=== PATIENT | male | born 1945 | race Caucasian/White ===

== ENCOUNTER 2016-11-06 00:27 | Emergency (ER) | payer OTHER ==
--- NOTE | 2016-11-06 03:54 | ED ORDER SUMMARY ---
..... Patient: LATASHA CEJA OrderSheet [facility] VisitID: [id number] [place] [address] 70y, M Registration Date/Time: 11/06/2016 ORDER SHEET Weight: 114.3 kg (stated) Allergies: No Known Drug Allergy GENERAL ORDERS: EKG - ER Stat (00:38 11/06/2016 DDavis R.N. per protocol) (1:00 Rebecca) CMP Urgent (00:42 11/06/2016 DDavis R.N. per protocol) (0:42 DDavis R.N.) CBC w Diff Urgent (00:42 11/06/2016 DDavis R.N. per protocol) (0:42 DDavis R.N.) Amylase Urgent (00:42 11/06/2016 DDavis R.N. per protocol) (0:42 DDavis R.N.) Lipase Urgent (00:42 11/06/2016 DDavis R.N. per protocol) (0:42 DDavis R.N.) CT Abd/Pel w Cont (No) (N/A) Urgent (01:02 11/06/2016 Jose Barahona) (Ack 1:05 Rebeca ER Senior Attorney) (1:34 JQuivey R.N.) UA-Culture if indicated Urgent (02:07 11/06/2016 Jose Barahona) (Ack 2:08 Rebeca ER Senior Attorney) (3:08 DDavis R.N.) MEDICATION ORDERS: IV FLUIDS: IV Saline Lock (00:42 11/06/2016 DDavis R.N. per protocol) (0:42 DDavis R.N.) IV NS : initial bolus 1000 mL (1000 mL/hr), then none - for X1 (NOW) (01:02 11/06/2016 Jose Barahona) (1:07 DDavis R.N.) ORDER SHEET NOTES: [Electronically signed by Zac Urias R.N. (04:18 11/06/2016)] [Electronically signed by Mark Judd Dr. (04:58 11/08/2016)] [Electronically locked/signed by Zac Urias R.N. (04:18 11/06/2016)]
--- NOTE | 2016-11-06 03:54 | ED NURSING NOTES ---
Clinical Report - Nurses [facility] [address] [place] [address] 11/06/2016 0:29 [id number] Triage time 00:30. Acuity: LEVEL 3. Chief Complaint: ABDOMINAL PAIN, NAUSEA, VOMITING and DIARRHEA. Alert. ANA COMA SCORE: [place] Coma Scale: 15- eyes open spontaneously (4); best verbal response- oriented x 4 (5); best motor response- obeys commands (6). --00:38 Zac Urias R.N. 00:30 11/06/16. BP: 142/84. HR: 82. RR: 24. O2 saturation: 97% on room air. Temp: 97.6 F (oral). Pain level now: 12/04. --00:38 Zac Urias R.N. Weight: 114.3 kg stated. Height/Length: 70 inches Per Patient. BMI: 36.2. --00:31 Zac Urias R.N. Medications Naproxen Oral. --00:33 Zac Urias R.N. Kim-D Allergy & Congestion Oral. --00:33 Zac Urias R.N. Omeprazole Oral. --00:34 Zac Urias R.N. Allergies No Known Drug Allergy. --00:33 Zac Urias R.N. History Arrived by EMS, and unaccompanied. ( abdominal cramps, sweating). PAST MEDICAL HX: Gastroesophageal reflux disease. SOCIAL HX: Heavy tobacco smoker (cigarette)- 1 pack per day. Occasional alcohol use. History of drug use: marijuana. ("that wax stuff"). ( denies HI/SI, states that he feels safe at home). --00:38 Zac Urias R.N. PROBLEMS: Hernia. Rheumatic Fever. Shoulder Injury. Acid reflux. --00:36 Zac Urias R.N. ADDITIONAL SURGERIES: Shoulder Surgery. --00:36 Zac Urias R.N. Interventions ID band on patient. To treatment room. --00:38 Zac Urias R.N. PHYSICAL ASSESSMENT Ambulatory to room. GENERAL / NEURO / PSYCH: Alert. Oriented X 4. Appears anxious. HEENT: Mucous membranes are pink. RESPIRATORY: Respirations not labored. Breath sounds within normal limits. CVS: Capillary refill less than 2 seconds. GI / : The patient has had nausea. Abdominal distention. Abdomen nontender. Bowel sounds within normal limits. SKIN: Skin is warm and dry. --00:40 Zac Urias R.N. ( Pt paced on blasting contract man, sinus rhythm on monitor). --00:44 Zac Urias R.N. NURSING PROGRESS NOTES Pulse oximeter and NIBP monitor placed on patient. Reassurance given. Two patient identifiers checked. Call light placed in reach. Side rails up x 1. Bed placed in lowest position. Brakes of bed on. Patient ready for evaluation- chart flagged. Patient waiting for evaluation. --00:40 Zac Urias R.N. 00:40 11/06/2016 Site #1 started via IV in the left antecubital space with an 20g angiocath, with aseptic technique and good blood return; one attempt. Blood drawn: rainbow set. Labeled in the presence of the patient and sent to the lab. Saline lock flushed with 10 mL saline (Started by SAVITA Oneill). --00:40 Zac Urias R.N. 01:07 11/06/2016 Started bag #1 1000 mL IV Fluids IV NS (Saline); at 1000 mL/hr over 1 hour(s) via site #1. Allergies verified and confirmed 5 rights. IV patency established. IV site checked: no pain, redness, or swelling. IV flushed thoroughly pre- and post-medication administration. Completed per protocol. --01:07 Zac Urias R.N. 01:26. Patient transported to CT by stretcher with tech. --01:34 Basil Parada R.N. Patient returned from CT by stretcher with tech. (01:34). --01:34 Basil Parada R.N. EKG time: (0100). EKG was ordered, performed by a tech and shown to the ED physician. --01:45 Simran Mosley ( Patient given urine cup and urinal at bedside with instructions for urine sample collection, patient states that he he will provide a urine sample.). --02:28 Zac Urias R.N. 02:10 11/06/2016 IV Saline Lock Drip IV Discontinued: discontinued upon discharge. Total amount infused: 1000 mL. IV patency established. IV site checked: no pain, redness, or swelling. IV flushed thoroughly. --04:16 Zac Urias R.N. 02:10 11/06/2016 IV Fluids IV NS Discontinued: discontinued. Total amount infused: 1000 mL. IV patency established. IV site checked: no pain, redness, or swelling. IV flushed thoroughly. --04:17 Zac Urias R.N. 04:12 11/06/2016 Site #1 removed upon discharge. Manual pressure and bandage applied. --04:17 Zac Urias R.N. DISPOSITION / DISCHARGE Departure time: 04:12. Condition at departure: stable. No learning barriers present. Discharge instructions provided and reviewed with the patient and spouse. Reviewed medication(s) side effects, precautions, dosing and course information. Prescription(s) given to the patient. Treatments reviewed. Reviewed referrals for followup. Patient and spouse verbalized understanding. Written instructions provided in Azeri. The patient was discharged home and accompanied by spouse. He left the Emergency Department ambulatory and via private vehicle. Spouse driving. --04:14 Zac Urias R.N. 04:12 11/06/16. BP: 125/71 taken on the right arm, while sitting. HR: 70 (regular and normal rate). RR: 24 (regular and unlabored). O2 saturation: 96% on room air. Pain level now: 0/10. Additional comments: NSR. --04:14 Zac Urias R.N. <<STRICKEN ENTRY-- Reviewed warnings. --04:15 Zac Urias R.N. --END STRIKE>> Correction --04:15 Zac Urias R.N. 04:12:. Reviewed warnings. --04:15 Zac Urias R.N. Locked/Released at 11/06/2016 4:18 by Zac Urias R.N.
--- NOTE | 2016-11-06 03:54 | ED ORDER SUMMARY ---
..... Patient: LATASHA CEJA OrderSheet [facility] VisitID: [id number] [place] [address] 70y, M Registration Date/Time: 11/06/2016 ORDER SHEET Weight: 114.3 kg (stated) Allergies: No Known Drug Allergy GENERAL ORDERS: EKG - ER Stat (00:38 11/06/2016 DDavis R.N. per protocol) (1:00 Rebecca) CMP Urgent (00:42 11/06/2016 DDavis R.N. per protocol) (0:42 DDavis R.N.) CBC w Diff Urgent (00:42 11/06/2016 DDavis R.N. per protocol) (0:42 DDavis R.N.) Amylase Urgent (00:42 11/06/2016 DDavis R.N. per protocol) (0:42 DDavis R.N.) Lipase Urgent (00:42 11/06/2016 DDavis R.N. per protocol) (0:42 DDavis R.N.) CT Abd/Pel w Cont (No) (N/A) Urgent (01:02 11/06/2016 Jose Barahona) (Ack 1:05 Rebeca ER Audio Video Technician) (1:34 JQuivey R.N.) UA-Culture if indicated Urgent (02:07 11/06/2016 Jose Barahona) (Ack 2:08 Rebeca ER Audio Video Technician) (3:08 DDavis R.N.) MEDICATION ORDERS: IV FLUIDS: IV Saline Lock (00:42 11/06/2016 DDavis R.N. per protocol) (0:42 DDavis R.N.) IV NS : initial bolus 1000 mL (1000 mL/hr), then none - for X1 (NOW) (01:02 11/06/2016 Jose Barahona) (1:07 DDavis R.N.) ORDER SHEET NOTES: [Electronically signed by Zac Urias R.N. (04:18 11/06/2016)] [Electronically signed by Mark Judd Dr. (04:58 11/08/2016)] [Electronically locked/signed by Zca Urias R.N. (04:18 11/06/2016)]
--- NOTE | 2016-11-06 03:54 | ED CLINICAL REPORT ---
Clinical Report - Physicians/Mid Levels [facility] [address] [place] [address] 11/06/2016 0:29 Patient: LATASHA CEJA Time Seen: 0042; initial patient contact. Arrived- By ambulance. Historian- patient. HISTORY OF PRESENT ILLNESS Chief Complaint: ABDOMINAL PAIN. This started today and is still present (unchanged). It was abrupt in onset and has been constant but is not gone now. At its maximum, severity described as moderate. When seen in the E.D., severity described as moderate. Modifying factors. Not worsened by anything. Not relieved by anything. No radiation. It is described as located in the epigastric area. The patient has had nausea, vomiting and diarrhea. No loss of appetite. No additional abdominal pain. (no new/unusual foods, recent travel, sick contacts, or recent abx.). No recent travel. Similar symptoms previously: None. Recent medical care: Not recently seen/assessed. REVIEW OF SYSTEMS No fever, chest pain or difficulty breathing. All systems otherwise negative, except as recorded above. PAST HISTORY See nurses notes. Medications: Omeprazole Oral. Kim-D Allergy & Congestion Oral. Naproxen Oral. Allergies: No Known Drug Allergy. SOCIAL HISTORY Smoker- current status unknown. History of occasional drug use: marijuana. No alcohol use. No recent travel. Is a local resident. ADDITIONAL NOTES The nursing notes have been reviewed. PHYSICAL EXAM Vital Signs: 11/06/2016 00:30 BP: 142/84. HR: 82. RR: 24. O2 saturation: 97%. Temp: 97.6 F. Pain level now: 6/10. Oxygen saturation normal. Appearance: Alert. Oriented X3. No acute distress. (non-toxic). Eyes: Pupils equal, round and reactive to light. Eyes normal inspection. No scleral icterus. Neck: Normal inspection. Neck supple. CVS: Normal heart rate and rhythm. Heart sounds normal. Pulses normal. Respiratory: No respiratory distress. Breath sounds normal. Chest nontender. Abdomen: Soft. Mild tenderness in the epigastric area. No guarding, rebound tenderness or Padgett's, obturator or psoas sign present. Bowel sounds normal. No organomegaly. No mass. Femoral pulses equal. Skin: Skin warm and dry. Normal skin color. No rash. Normal skin turgor. Extremities: Extremities exhibit normal ROM. No lower extremity edema. Neuro: Oriented X 3. No motor deficit. No sensory deficit. LABS, X-RAYS, AND EKG EKG: No acute ischemia. Normal sinus rhythm. Rate: 84. Normal P waves. Normal BERNA. RBBB (146). Normal ST and T waves, QT and QTc. Abdominal CT: PROCEDURE: CT ABD/PELVIS WITH CONTRAST CLINICAL INDICATION: Upper abdominal pain. History of hiatal and inguinal hernia repair. TECHNIQUE: 135 ml of Isovue 300 were injected intravenously and axial images were obtained of the entire abdomen and pelvis with sagittal and coronal reformations. COMPARISON: None. FINDINGS: ABDOMEN: Lung bases are clear. Heart size is normal. Moderate hiatal hernia with marked gaseous gastric distention of the stomach. Contracted gallbladder. Punctate pancreatic calcification suggestive of chronic pancreatitis. Liver, spleen and adrenal glands are normal. Bilateral renal cysts. Mild atherosclerosis of the aorta. Stool throughout the large bowel. PELVIS: Normal appendix. Mild sigmoid diverticulosis. Enlarged prostate (5 cm). Normal bladder. No pelvic mass, inflammatory changes or free fluid. No suspicious osseous lesions. IMPRESSION: 1. Gaseous distention of the stomach, nonspecific. Consider gastric outlet obstruction 2. Moderate hiatal hernia. 3. Obstipation 4. Mild sigmoid diverticulosis. Study type: abdomen and pelvis. The study was independently viewed by me and interpreted by the radiologist. The study was discussed with the radiologist (via phone and pacs). Laboratory Tests: UA-Culture if indicated: (RANI: 11/06/2016 02:35) ( MsgRcvd 11/06/2016 02:48) Final results Test Result Flag Units (Reference) URINE COLOR YELLOW URINE APPEARANCE CLEAR URINE GLUCOSE TRACE (NEGATIVE) URINE BILIRUBIN NEGATIVE (NEGATIVE) URINE KETONE 1+ (NEGATIVE) URINE SPECIFIC GRAVITY 1.015 (1.010-1.030) URINE PH 6.0 (5.0-8.0) URINE PROTEIN TRACE (NEGATIVE) URINE UROBILINOGEN 0.2 EU/dL (0.2-1.0) URINE NITRITE NEGATIVE (NEGATIVE) URINE BLOOD NEGATIVE (NEGATIVE) URINE LEUK ESTERASE NEGATIVE (NEGATIVE) URINE RBC 0-1 rbc/hpf (0-1) URINE WBC 0-1 wbc/hpf (0-1) URINE EPITHELIAL CELLS 0-1 EPI/hpf (0-5) URINE BACTERIA NONE SEEN (NONE SEEN) URINE COMMENT CULT NOT INDICATED URINE CULTURES ARE SET-UP BASED ON THE FOLLOWING CRITERIA:POSITIVE NITRITEPOSITIVE LEUKOCYTE ESTERASEGREATER THAN 10 WHITE BLOOD CELLSMODERATE (2+) OR GREATER BACTERIA CBC w Diff: (RANI: 11/06/2016 00:40) ( MsgRcvd 11/06/2016 00:51) Final results Test Result Flag Units (Reference) WHITE BLOOD COUNT 10.5 K/uL (4.5-11.5) RED BLOOD COUNT 5.43 M/uL (4.50-5.90) HEMOGLOBIN 15.9 gm/dL (13.5-17.5) HEMATOCRIT 48.1 % (41.0-53.0) MEAN CELL VOLUME 89 fL (80-100) MEAN CORPUSCULAR HGB 29 pg (26-34) MEAN CORPUSCULAR HGB CONC 33 g/dL (31-37) RED CELL DISTRIBUTION WIDTH 14.5 % (11.6-14.8) PLATELET COUNT 217 K/uL (150-400) NEUTROPHIL % 84.7 H % (50-75) LYMPH % 11.5 L % (25-40) MONO % 2.5 L % (3-14) EOSINOPHIL % 0.7 % (0-4) BASOPHIL % 0.6 % (0-2) CMP: (RANI: 11/06/2016 00:40) ( MsgRcvd 11/06/2016 00:59) Final results Test Result Flag Units (Reference) GLUCOSE 234 H mg/dL (70-110) BUN 16 mg/dL (7-18) CREATININE 0.9 mg/dL (0.6-1.3) Estimated GFR >60 mL/min Estimated GFR- >60 mL/min Note: Persistent reduction over 3 months in eGFR<60 mL/min/1.73 m2 defines CKD. Patients with eGFR values>=60 mL/min/1.73 m2 may also have CKD if evidence ofpersistent proteinuria. Additional information may be foundat www.kidney.org. SODIUM 142 mmol/L (136-145) POTASSIUM 4.6 mmol/L (3.5-5.1) CHLORIDE 104 mmol/L (98-107) CARBON DIOXIDE 28 mmol/L (21-32) CALCIUM 8.6 mg/dL (8.5-10.1) TOTAL PROTEIN 7.9 g/dL (6.4-8.2) ALBUMIN 4.1 g/dL (3.3-5.0) BILIRUBIN, TOTAL 0.3 mg/dL (0.0-1.0) ALKALINE PHOSPHATASE 103 U/L (46-116) AST (SGOT) 20 U/L (15-37) ALT (SGPT) 32 U/L (12-78) LIPASE 310 U/L (73-393) AMYLASE 73 U/L (25-115) . PROGRESS AND PROCEDURES Course of Care: the patient is a pleasant 70-year-old male presented for evaluation of epigastric abdominal pain. Because of the patient's age and history of gastroesophageal reflux, would be concerned for possible perforated hollow viscus. Would also be evaluated for biliary pathology. Because of the differential diagnosis, CT scan of the abdomen and pelvis with contrast is the best imaging modality. Pain medication and nausea medication been ordered. Patient is agreeable to the treatment and plan. The patient workup was remarkable for the findings above. Symptoms significantly improved with the treatment here in the emergency department. Because the patient's improved symptomatology Negative workup, and benign repeat exam, do not feel patient requires admission to the hospital or further emergency department workup/evaluation. Do not feel patient has a surgical abdomen. Patient is resting in bed and in no acute distress. Patient appears to be nontoxic. Had discussion with the patient as well as his significant other who is at bedside in regards to his diagnosis, home care, follow-up, and return precautions. All questions have been answered. The patient expressed understanding of these instructions and was agreeable to them. Disposition: Discharged. Condition: good. CLINICAL IMPRESSION Acute epigastric abdominal pain. 11/06/2016 03:17 BP: 116/75. HR: 75. O2 saturation: 94%. Blood pressure normal. Oxygen saturation normal. Acute gastritis INSTRUCTIONS Warnings: GENERAL WARNINGS: Return or contact your physician immediately if your condition worsens or changes unexpectedly, if not improving as expected, or if other problems arise. SPECIFICALLY, return if you develop pain, fever, vomiting, the inability to keep fluids down, blood in vomitus, blood in diarrhea, fainting or lightheadedness. Your Current Medications: CONTINUE TAKING THE FOLLOWING MEDICATIONS: Kim-D Allergy & Congestion Oral. Naproxen Oral. Omeprazole Oral. Prescription Medications: Pepcid 20 mg: take 1 orally every 12 hours as needed for indigestion, upset stomach or heartburn. Dispense thirty (30). No refills. Substitution is permissible. Follow-up: Return to the emergency department as needed. Follow up with your doctor in three days. Reason for referral: recheck today's concerns. Summary of care provided to patient via paper. Screening today revealed the patient's blood pressure to be in the normal range. The patient should follow up with a primary care provider for blood pressure management. Understanding of the discharge instructions verbalized by patient. (Electronically signed by Mark Judd Dr. 11/08/2016 4:58)
--- NOTE | 2016-11-06 03:54 | ED NURSING NOTES ---
Clinical Report - Nurses [facility] [address] [place] [address] 11/06/2016 0:29 [id number] Triage time 00:30. Acuity: LEVEL 3. Chief Complaint: ABDOMINAL PAIN, NAUSEA, VOMITING and DIARRHEA. Alert. ANA COMA SCORE: [place] Coma Scale: 15- eyes open spontaneously (4); best verbal response- oriented x 4 (5); best motor response- obeys commands (6). --00:38 Zac Urias R.N. 00:30 11/06/16. BP: 142/84. HR: 82. RR: 24. O2 saturation: 97% on room air. Temp: 97.6 F (oral). Pain level now: 12/04. --00:38 Zac Urias R.N. Weight: 114.3 kg stated. Height/Length: 70 inches Per Patient. BMI: 36.2. --00:31 Zac Urias R.N. Medications Naproxen Oral. --00:33 Zac Urias R.N. Kim-D Allergy & Congestion Oral. --00:33 Zac Urias R.N. Omeprazole Oral. --00:34 Zac Urias R.N. Allergies No Known Drug Allergy. --00:33 Zac Urias R.N. History Arrived by EMS, and unaccompanied. ( abdominal cramps, sweating). PAST MEDICAL HX: Gastroesophageal reflux disease. SOCIAL HX: Heavy tobacco smoker (cigarette)- 1 pack per day. Occasional alcohol use. History of drug use: marijuana. ("that wax stuff"). ( denies HI/SI, states that he feels safe at home). --00:38 Zac Urias R.N. PROBLEMS: Hernia. Rheumatic Fever. Shoulder Injury. Acid reflux. --00:36 Zac Urias R.N. ADDITIONAL SURGERIES: Shoulder Surgery. --00:36 Zac Urias R.N. Interventions ID band on patient. To treatment room. --00:38 Zac Urias R.N. PHYSICAL ASSESSMENT Ambulatory to room. GENERAL / NEURO / PSYCH: Alert. Oriented X 4. Appears anxious. HEENT: Mucous membranes are pink. RESPIRATORY: Respirations not labored. Breath sounds within normal limits. CVS: Capillary refill less than 2 seconds. GI / : The patient has had nausea. Abdominal distention. Abdomen nontender. Bowel sounds within normal limits. SKIN: Skin is warm and dry. --00:40 Zac Urias R.N. ( Pt paced on monitor technician, sinus rhythm on monitor). --00:44 Zac Urias R.N. NURSING PROGRESS NOTES Pulse oximeter and NIBP monitor placed on patient. Reassurance given. Two patient identifiers checked. Call light placed in reach. Side rails up x 1. Bed placed in lowest position. Brakes of bed on. Patient ready for evaluation- chart flagged. Patient waiting for evaluation. --00:40 Zac Urias R.N. 00:40 11/06/2016 Site #1 started via IV in the left antecubital space with an 20g angiocath, with aseptic technique and good blood return; one attempt. Blood drawn: rainbow set. Labeled in the presence of the patient and sent to the lab. Saline lock flushed with 10 mL saline (Started by SAVITA Oneill). --00:40 Zac Urias R.N. 01:07 11/06/2016 Started bag #1 1000 mL IV Fluids IV NS (Saline); at 1000 mL/hr over 1 hour(s) via site #1. Allergies verified and confirmed 5 rights. IV patency established. IV site checked: no pain, redness, or swelling. IV flushed thoroughly pre- and post-medication administration. Completed per protocol. --01:07 Zac Urias R.N. 01:26. Patient transported to CT by stretcher with tech. --01:34 Basil Parada R.N. Patient returned from CT by stretcher with tech. (01:34). --01:34 Basil Parada R.N. EKG time: (0100). EKG was ordered, performed by a tech and shown to the ED physician. --01:45 Simran Mosley ( Patient given urine cup and urinal at bedside with instructions for urine sample collection, patient states that he he will provide a urine sample.). --02:28 Zac Urias R.N. 02:10 11/06/2016 IV Saline Lock Drip IV Discontinued: discontinued upon discharge. Total amount infused: 1000 mL. IV patency established. IV site checked: no pain, redness, or swelling. IV flushed thoroughly. --04:16 Zac Urias R.N. 02:10 11/06/2016 IV Fluids IV NS Discontinued: discontinued. Total amount infused: 1000 mL. IV patency established. IV site checked: no pain, redness, or swelling. IV flushed thoroughly. --04:17 Zac Urias R.N. 04:12 11/06/2016 Site #1 removed upon discharge. Manual pressure and bandage applied. --04:17 Zac Urias R.N. DISPOSITION / DISCHARGE Departure time: 04:12. Condition at departure: stable. No learning barriers present. Discharge instructions provided and reviewed with the patient and spouse. Reviewed medication(s) side effects, precautions, dosing and course information. Prescription(s) given to the patient. Treatments reviewed. Reviewed referrals for followup. Patient and spouse verbalized understanding. Written instructions provided in Uzbek. The patient was discharged home and accompanied by spouse. He left the Emergency Department ambulatory and via private vehicle. Spouse driving. --04:14 Zac Urias R.N. 04:12 11/06/16. BP: 125/71 taken on the right arm, while sitting. HR: 70 (regular and normal rate). RR: 24 (regular and unlabored). O2 saturation: 96% on room air. Pain level now: 0/10. Additional comments: NSR. --04:14 Zac Urias R.N. <<STRICKEN ENTRY-- Reviewed warnings. --04:15 Zac Urias R.N. --END STRIKE>> Correction --04:15 Zac Urias R.N. 04:12:. Reviewed warnings. --04:15 Zac Urias R.N. Locked/Released at 11/06/2016 4:18 by Zac Urias R.N.
--- NOTE | 2016-11-06 07:20 | DIAGNOSTIC IMAGING REPORT ---
PROCEDURE: CT ABD/PELVIS WITH CONTRAST CLINICAL INDICATION: Upper abdominal pain. History of hiatal and inguinal hernia repair. TECHNIQUE: 135 ml of Isovue 300 were injected intravenously and axial images were obtained of the entire abdomen and pelvis with sagittal and coronal reformations. COMPARISON: None. FINDINGS: ABDOMEN: Lung bases are clear. Heart size is normal. Moderate hiatal hernia with marked gaseous gastric distention of the stomach. Contracted gallbladder. Punctate pancreatic calcification suggestive of chronic pancreatitis. Liver, spleen and adrenal glands are normal. Bilateral renal cysts. Mild atherosclerosis of the aorta. Stool throughout the large bowel. PELVIS: Normal appendix. Mild sigmoid diverticulosis. Enlarged prostate (5 cm). Normal bladder. No pelvic mass, inflammatory changes or free fluid. No suspicious osseous lesions. IMPRESSION: 1. Gaseous distention of the stomach, nonspecific. Consider gastric outlet obstruction 2. Moderate hiatal hernia. 3. Obstipation 4. Mild sigmoid diverticulosis 5. Preliminary results submitted by Dr. Ruiz, [facility] radiology. All CT scans at this facility use dose modulation, iterative reconstruction, and/or weight-based dosing when appropriate to reduce radiation dose to as low as reasonably achievable.
--- NOTE | 2016-11-08 04:59 | ED MAR SUMMARY ---
..... Medication Administration Record [facility] [address] [place] [address] Patient: LATASHA CEJA Visit ID: [id number] 70y, M Weight: 114.3 kg Height/Length: 70 in BMI: 36.2 ALLERGIES: No Known Drug Allergy Start 01:07 11/06/2016 Zac Urias R.N., Stop 02:10 11/06/2016 Zac Urias R.N. Medication Administered: IV NS (SALINE), Dose: IV Fluids over 1 hour(s), Rate: 1000 mL/hr, Dispensed: 1000 mL bag, Site: #1 left AC. Medication Ordered: IV NS : initial bolus 1000 mL (1000 mL/hr), then none - for X1 (NOW).
--- NOTE | 2016-11-08 04:59 | ED DISCHARGE INSTRUCTIONS ---
Patient: LATASHA CEJA General Instructions [facility] VisitID: [id number] [place] [address] 70y, M Registration Date/Time: 11/06/2016 Acute epigastric abdominal pain. 11/06/2016 03:17 BP: 116/75. HR: 75. O2 saturation: 94%. Blood pressure normal. Oxygen saturation normal. Acute gastritis INSTRUCTIONS Warnings: GENERAL WARNINGS: Return or contact your physician immediately if your condition worsens or changes unexpectedly, if not improving as expected, or if other problems arise. SPECIFICALLY, return if you develop pain, fever, vomiting, the inability to keep fluids down, blood in vomitus, blood in diarrhea, fainting or lightheadedness. Your Current Medications: CONTINUE TAKING THE FOLLOWING MEDICATIONS: Kim-D Allergy & Congestion Oral. Naproxen Oral. Omeprazole Oral. Prescription Medications: Pepcid 20 mg: take 1 orally every 12 hours as needed for indigestion, upset stomach or heartburn. Dispense thirty (30). No refills. Substitution is permissible. Follow-up: Return to the emergency department as needed. Follow up with your doctor in three days. Reason for referral: recheck today's concerns. Summary of care provided to patient via paper. Screening today revealed the patient's blood pressure to be in the normal range. The patient should follow up with a primary care provider for blood pressure management. Understanding of the discharge instructions verbalized by patient. ADDITIONAL INFORMATION Abdominal Pain,Uncertain Cause [Male] Based on your visit today, the exact cause of your abdominalpain is not clear. Your exam and tests do not indicate a dangerous cause at this time. However, the signs of a serious problem may take more time to appear. Although your evaluation was reassuring today, sometimes early in the course of many conditions, exam and lab tests can appear normal. Therefore, it is important for you to watch for any new symptoms or worsening of your condition. Causes It may not be obvious what caused your symptoms. Pay attention to things that do seem to make your symptoms worse or better and discuss this with your doctor when you follow up. Diagnosis The evaluation of abdominal pain in the emergency department may onlyrequire an exam by the doctor or it may include blood, urine or imaging studies, depending on many factors. Sometimes exams and tests can identify a cause but in many cases, a clear cause is not found. Further testing at follow up visits may help to suggest a clear diagnosis. Home Care Rest as much as possible until your next exam. Try to avoid any medications (unless otherwise directed by your doctor), foods, activities, or other factors that you may have contributed to your symptoms. Try to eat foods that you know that you have tolerated well in the past. Certain diets may be recommended for some conditions that cause abdominal pain. However, since the cause of your symptoms may not be clear, discuss your diet more with your primary care provider or specialist for further recommendations. Eating several small meals per day as opposed to 2 or 3 larger meals may help. Monitor closely for anything that may make your symptoms worse or better. Pay close attention to symptoms below that may indicate worsening of your condition. Follow Up and Precautions See your doctoras instructed or sooneror if your symptoms are not improving.In some cases, you may need more testing. When to Seek Medical Attention Contact your doctor or see medical attention ifany of the following occur: Pain is becoming worse You are unable to take your medications due to excessive vomiting Swelling of the abdomen Fever of 100.4F (38C) or higher, or as directed by your health care provider Blood in vomit or bowel movements (dark red or black color) Jaundice (yellow color of eyes and skin) New onset of weakness, dizziness or fainting New onset of chest, arm, back, neck or jaw pain Gastritis Versus Ulcer (No Antibiotic Tx) The symptoms of gastritis and peptic ulcer are very similar. Both can cause a dull ache or burning pain in the upper abdomen. Other symptoms include nausea, vomiting, loss of appetite, and belching or bloating. Blood in the vomit or stools (red or black) is a sign of bleeding in the stomach. This requires immediate medical attention. A Peptic Ulcer is an open sore in the lining of the stomach or duodenum (upper intestine). The most common cause of peptic ulcer disease is a bacterial infection (H pylori) in the stomach. Another common cause is taking anti-inflammatory medications (such as ibuprofen, prednisone, and aspirin). Gastritis is an irritation of the stomach lining. It can be acute (recent) or chronic (lasting a long time). Gastritis can be caused by overuse of alcohol or anti-inflammatory medications (such as aspirin, ibuprofen, prednisone). H pyloriinfection can also cause chronic gastritis. Tests for H pyloriare used to screen for bacterial infection. If no infection is found, ulcer and gastritis can be treated by stopping the cause, such as anti-inflammatory medications, alcohol, caffeine, and tobacco, and treating with antacids plus an acid delon medication. If H pylori infection is found, antibiotics will be prescribed along with an acid delon. Persons 55 years and older may undergo other tests before treatment is started. Two common tests are used to evaluate your symptoms. An upper GI series is an x-ray taken after you drink a chalky liquid called barium. This coats the stomach and allows an ulcer to show up on the x-ray. Another test is called endoscopy during which a long thin tube called an endoscope is passed down your throat to the stomach. A camera at the end of the scope allows the doctor to view inside the stomach to check the cause of your symptoms. Home Care: Take the prescribed acid delon medication for the full course of treatment even if you begin to feel better sooner. This medication can take up to several days to fully control your symptoms. If you cant afford the prescribed medication, you can try hyus-ool-yjriknp acid blockers, such as Pepcid AC, Tagamet, Zantac, or Aciphex. If these do not relieve your symptoms, a stronger acid-delon can be tried, such as Prilosec OTC. If you have been prescribed an antibiotic to treat H pyloriinfection, finish the full course of medication. Do so even if you begin to feel better sooner. If you stop the medication too soon, the infection can return and be harder to treat. You can use antacids, such as Tums, Rolaids, Mylanta, or Maalox, for pain. This will be useful the first few days after starting acid blockers when the blockers havent started working yet. Follow the directions on the label. Liquid antacids may work better than tablets. Note that antacids can interfere with absorption of certain medications. Specifically, do not take Tagamet (cimetidine), Zantac (ranitidine), or Carafate (sucralfate) within 1 hour of taking an antacid. Talk with your pharmacist if you have any questions. Although foods do not cause an ulcer, symptoms can be worsened by certain foods. Limit or avoid fatty, fried, and spicy foods, as well as coffee, chocolate, mint, and foods with high acid content such as tomatoes and citrus fruit and juices (orange, grapefruit, lemon). Avoid alcohol, caffeine, and tobacco, which can delay healing. Avoid aspirin and anti-inflammatory medications such as ibuprofen (Advil, Motrin) and naproxen (Naprosyn, Aleve). Acetaminophen (Tylenol) is safe to use. Do not take more than the amount listed on the label. Follow Up with your doctor or as advised. Further testing may be needed. If you do not begin to improve over the next 4 days, contact your doctor. If you had tests, youll be notified of any new findings that affect your care. Get Prompt Medical Attention if any of the following occur: Stomach pain gets worse or moves to the lower right abdomen (appendix area) Chest pain appears or gets worse, or spreads to the back, neck, shoulder, or arm Frequent vomiting (cant keep down liquids) Blood in the stool or vomit (red or black in color) Feeling weak or dizzy, fainting, or trouble breathing Fever of 100.4F (38C) or higher, or as directed by your healthcare provider Famotidine Oral tablet What is this medicine? FAMOTIDINE (yakov camilo) is a type of antihistamine that blocks the release of stomach acid. It is used to treat stomach or intestinal ulcers. It can also relieve heartburn from acid reflux. How should I use this medicine? Take this medicine by mouth with a glass of water. Follow the directions on the prescription label. If you only take this medicine once a day, take it at bedtime. Take your doses at regular intervals. Do not take your medicine more often than directed. Talk to your recreational vehicle resort manager regarding the use of this medicine in children. Special care may be needed. What side effects may I notice from receiving this medicine? Side effects that you should report to your doctor or health field care coordinator as soon as possible: agitation, nervousness confusion hallucinations skin rash, itching Side effects that usually do not require medical attention (report to your doctor or health field care coordinator if they continue or are bothersome): constipation diarrhea dizziness headache What may interact with this medicine? delavirdine itraconazole ketoconazole What if I miss a dose? If you miss a dose, take it as soon as you can. If it is almost time for your next dose, take only that dose. Do not take double or extra doses. Where should I keep my medicine? Keep out of the reach of children. Store at room temperature between 15 and 30 degrees C (59 and 86 degrees F). Do not freeze. Throw away any unused medicine after the expiration date. What should I tell my health care provider before I take this medicine? They need to know if you have any of these conditions: kidney or liver disease trouble swallowing an unusual or allergic reaction to famotidine, other medicines, foods, dyes, or preservatives or trying to get breast-feeding What should I watch for while using this medicine? Tell your doctor or health field care coordinator if your condition does not start to get better or if it gets worse. Finish the full course of tablets prescribed, even if you feel better. Do not take with aspirin, ibuprofen or other antiinflammatory medicines. These can make your condition worse. Do not smoke cigarettes or drink alcohol. These cause irritation in your stomach and can increase the time it will take for ulcers to heal. If you get black, tarry stools or vomit up what looks like coffee grounds, call your doctor or health field care coordinator at once. You may have a bleeding ulcer. You have been given the following additional information: Abdominal Pain, Unknown Cause, (Male) Gastritis Vs. Ulcer Famotidine Oral tablet (Electronically signed by Mark Judd Dr. 11/08/2016 4:58)
--- NOTE | 2016-11-08 04:59 | ED MED RECONCILIATION SUMMARY ---
Patient: LATASHA CEJA Medication Reconciliation Report [facility] VisitID: [id number] [address] [place] [address] 70y, M Registration Date/Time: 11/06/2016 Weight: 114.3 kg Height/Length: 70 in. BMI: 36.2 ALLERGIES: No Known Drug Allergy The patient's Home Medications are listed below: CONTINUE TAKING THE FOLLOWING MEDICATIONS: Kim-D Allergy & Congestion Oral Naproxen Oral Omeprazole Oral The source(s) of the original Home Medication information: Not obtained. The following Medications were given to the patient in the Emergency Department: IV NS IV Fluids bolus 0, then 1000 mL/hr, administered: 11/06/2016 1:07:00 AM The following Medications were prescribed to the patient: Pepcid 20 mg: take 1 orally every 12 hours as needed for indigestion, upset stomach or heartburn. Dispense thirty (30). No refills. Substitution is permissible. -- Mark Judd Dr.
--- NOTE | 2016-11-08 04:59 | ED MED RECONCILIATION SUMMARY ---
Patient: LATASHA CEJA Medication Reconciliation Report [facility] VisitID: [id number] [address] [place] [address] 70y, M Registration Date/Time: 11/06/2016 Weight: 114.3 kg Height/Length: 70 in. BMI: 36.2 ALLERGIES: No Known Drug Allergy The patient's Home Medications are listed below: CONTINUE TAKING THE FOLLOWING MEDICATIONS: Kim-D Allergy & Congestion Oral Naproxen Oral Omeprazole Oral The source(s) of the original Home Medication information: Not obtained. The following Medications were given to the patient in the Emergency Department: IV NS IV Fluids bolus 0, then 1000 mL/hr, administered: 11/06/2016 1:07:00 AM The following Medications were prescribed to the patient: Pepcid 20 mg: take 1 orally every 12 hours as needed for indigestion, upset stomach or heartburn. Dispense thirty (30). No refills. Substitution is permissible. -- Mark Judd Dr.
--- NOTE | 2016-11-08 04:59 | ED MAR SUMMARY ---
..... Medication Administration Record [facility] [address] [place] [address] Patient: LATASHA CEJA Visit ID: [id number] 70y, M Weight: 114.3 kg Height/Length: 70 in BMI: 36.2 ALLERGIES: No Known Drug Allergy Start 01:07 11/06/2016 Zac Urias R.N., Stop 02:10 11/06/2016 Zac Urias R.N. Medication Administered: IV NS (SALINE), Dose: IV Fluids over 1 hour(s), Rate: 1000 mL/hr, Dispensed: 1000 mL bag, Site: #1 left AC. Medication Ordered: IV NS : initial bolus 1000 mL (1000 mL/hr), then none - for X1 (NOW).
== END 2016-11-06 04:15 | disposition home or self-care (01) ==
LOC: ED SRH 00:27
DX: K29.00 Acute gastritis without bleeding (principal); R10.13 Epigastric pain; Z79.899 Other long term (current) drug therapy; Z79.1 Long term (current) use of non-steroidal anti-inflammatories (NSAID)
CPT/HCPCS: 90004; 90100; 92235; 92530; 95059